=== PATIENT | male | born 1945 | race Caucasian/White ===

== ENCOUNTER 2021-02-25 15:30 | Inpatient (IN) ==
[2021-02-25] MEDS ORDERED: Saliva Stimulant 44.3ml BOTTLE PO PRN (16:23)
[2021-02-25] MEDS ORDERED: Saline Nasal Spray 44 ML BOTTLE NS PRN (16:23)
[2021-02-25] MEDS ORDERED: Morphine Sulfate Oral CONC 10 MG/0.5 ML ORAL.SYG SL PRN (16:23)
[2021-02-25] MEDS: Budesonide/Formoterol 160/4.5 1 PUFF INH IH SCH (20:35)
[2021-02-25] MEDS: Topiramate 25 MG TABLET PO SCH (22:03)
[2021-02-25] MEDS: Furosemide 40 MG TABLET PO SCH (22:10)
[2021-02-26] MEDS ORDERED: Insulin LISPRO 300 UNITS/3 ML VIAL SUBQ SCH ×3 (08:00→18:00)
[2021-02-26] MEDS ORDERED: Dextrose Gel 15 GM/37.5 ML TUBE PO PRN ×2 (08:03)
[2021-02-26] MEDS ORDERED: D5% in Water 1,000 ML IVC PRN (08:03)
[2021-02-26] MEDS ORDERED: *HR* Dextrose 50 % in Water (Syg) 50 ML SYRINGE IVP PRN (08:03)
[2021-02-26] MEDS: Furosemide 40 MG TABLET PO SCH (08:28)
[2021-02-26] MEDS: Finasteride 5 MG TABLET PO SCH (08:28)
[2021-02-26] MEDS: Topiramate 25 MG TABLET PO SCH ×2 (08:28→21:02)
[2021-02-26] MEDS: Cyanocobalamin (B-12) 1,000 MCG TABLET PO SCH (08:28)
[2021-02-26] MEDS: Cholecalciferol (D-3) 1,000 UNIT (25MCG) TABLET PO SCH (08:29)
[2021-02-26] MEDS: atenoloL 50 MG TABLET PO SCH (08:29)
[2021-02-26] MEDS: dexAMETHasone 4 MG TABLET PO SCH (08:29)
[2021-02-26] MEDS: Insulin DETEMIR 100 UNIT/ML X5UNITS SUBQ SCH ×2 (08:36→21:07)
[2021-02-26] MEDS: TERBINAFINE HCL 250 MG PO SCH (08:39)
[2021-02-26] MEDS ORDERED: atenoloL 50 MG TABLET PO SCH (09:00)
[2021-02-26] MEDS ORDERED: Insulin DETEMIR 100 UNIT/ML X5UNITS SUBQ SCH (09:00)
[2021-02-26] MEDS: Budesonide/Formoterol 160/4.5 1 PUFF INH IH SCH ×2 (10:01→22:19)
[2021-02-26] MEDS: Ipratropium 1 PUFF INHALER IH PRN ×2 (10:03→22:21)
[2021-02-26] MEDS: Insulin LISPRO 300 UNITS/3 ML VIAL SUBQ SCH ×3 (11:46→21:07)
[2021-02-27] MEDS: *HR* Enoxaparin 40 MG/0.4 ML SYRINGE SQ SCH (06:07)
[2021-02-27 06:56] LABS: Basophils % 0.3 %; Eosinophils # 0.1 K/mcL (0.0-0.6); Eosinophils % 1.4 %; Hematocrit 45.5 % (37.5-50.1); Hemoglobin 14.7 g/dL (12.9-16.9); Immature Granulocytes % 2.2 % (0-4); Lymphocytes # 2.1 K/mcL (0.6-4.6); Lymphocytes % 27.2 %; Mean Corpuscular HGB Conc 32.3 g/dL (31.6-35.5); Mean Corpuscular Hemoglobin 30.4 pg (28.0-33.3); Mean Corpuscular Volume 94.2 fL (83.0-100.0); Mean Platelet Volume 9.8 fL (9.4-12.4); Monocytes # 0.6 K/mcL (0.0-1.3); Monocytes % 7.9 %; Neutrophils # 4.7 K/mcL (1.6-8.9); Platelet Count 319 K/mcL (140-400); Red Blood Count 4.83 M/mcL (4.19-5.50); Red Cell Distribution Width 14.5 % (11.5-14.5); White Blood Count 7.6 K/mcL (4.3-11.1)
[2021-02-27 07:41] LABS: BUN/Creatinine Ratio 28 (6-26); Blood Urea Nitrogen 30 mg/dL (8-23); Calcium 9.1 mg/dL (8.6-10.3); Carbon Dioxide 43 mEq/L (23-29); Chloride 94 mEq/L (98-107); Glucose 71 mg/dL (70-105); Osmolality,Calculated 303 (280-300); Potassium 3.4 mEq/L (3.5-5.1); Sodium 144 mEq/L (136-145); eGFR For African Americans > 60 (> 60); eGFR For Non-African Americans > 60 (> 60)
[2021-02-27] MEDS: Insulin LISPRO 300 UNITS/3 ML VIAL SUBQ SCH ×4 (09:15→20:17)
[2021-02-27] MEDS: Ipratropium 1 PUFF INHALER IH PRN ×2 (09:16→22:55)
[2021-02-27] MEDS: Budesonide/Formoterol 160/4.5 1 PUFF INH IH SCH ×2 (09:17→22:56)
[2021-02-27] MEDS: Cyanocobalamin (B-12) 1,000 MCG TABLET PO SCH (10:10)
[2021-02-27] MEDS: Furosemide 40 MG TABLET PO SCH (10:11)
[2021-02-27] MEDS: dexAMETHasone 4 MG TABLET PO SCH (10:11)
[2021-02-27] MEDS: Cholecalciferol (D-3) 1,000 UNIT (25MCG) TABLET PO SCH (10:11)
[2021-02-27] MEDS: Topiramate 25 MG TABLET PO SCH ×2 (10:11→20:16)
[2021-02-27] MEDS: Insulin DETEMIR 100 UNIT/ML X5UNITS SUBQ SCH ×2 (10:12→20:17)
[2021-02-27] MEDS: atenoloL 50 MG TABLET PO SCH (10:12)
[2021-02-27] MEDS: Finasteride 5 MG TABLET PO SCH (10:12)
[2021-02-27] MEDS: TERBINAFINE HCL 250 MG PO SCH (10:13)
[2021-02-28] MEDS: *HR* Enoxaparin 40 MG/0.4 ML SYRINGE SQ SCH (05:17)
[2021-02-28] MEDS: Insulin LISPRO 300 UNITS/3 ML VIAL SUBQ SCH ×4 (07:47→20:56)
[2021-02-28] MEDS: dexAMETHasone 4 MG TABLET PO SCH (09:17)
[2021-02-28] MEDS: Cyanocobalamin (B-12) 1,000 MCG TABLET PO SCH (09:18)
[2021-02-28] MEDS: Topiramate 25 MG TABLET PO SCH ×2 (09:18→20:56)
[2021-02-28] MEDS: Finasteride 5 MG TABLET PO SCH (09:19)
[2021-02-28] MEDS: Furosemide 40 MG TABLET PO SCH (09:19)
[2021-02-28] MEDS: Cholecalciferol (D-3) 1,000 UNIT (25MCG) TABLET PO SCH (09:19)
[2021-02-28] MEDS: Insulin DETEMIR 100 UNIT/ML X5UNITS SUBQ SCH ×2 (09:23→20:56)
[2021-02-28] MEDS: TERBINAFINE HCL 250 MG PO SCH (09:24)
[2021-02-28] MEDS: Ipratropium 1 PUFF INHALER IH PRN (09:46)
[2021-02-28] MEDS: Budesonide/Formoterol 160/4.5 1 PUFF INH IH SCH (09:48)
[2021-02-28] MEDS: atenoloL 50 MG TABLET PO SCH (16:44)
[2021-03-01] MEDS: *HR* Enoxaparin 40 MG/0.4 ML SYRINGE SQ SCH (06:19)
[2021-03-01] MEDS: Insulin LISPRO 300 UNITS/3 ML VIAL SUBQ SCH ×4 (07:44→20:49)
[2021-03-01] MEDS: Cyanocobalamin (B-12) 1,000 MCG TABLET PO SCH (08:54)
[2021-03-01] MEDS: Topiramate 25 MG TABLET PO SCH ×2 (08:54→20:48)
[2021-03-01] MEDS: Cholecalciferol (D-3) 1,000 UNIT (25MCG) TABLET PO SCH (08:54)
[2021-03-01] MEDS: dexAMETHasone 4 MG TABLET PO SCH (08:55)
[2021-03-01] MEDS: Finasteride 5 MG TABLET PO SCH (08:55)
[2021-03-01] MEDS: TERBINAFINE HCL 250 MG PO SCH (08:55)
[2021-03-01] MEDS: atenoloL 50 MG TABLET PO SCH (08:56)
[2021-03-01] MEDS ORDERED: Furosemide 40 MG TABLET PO ONE (09:00)
[2021-03-01] MEDS: Insulin DETEMIR 100 UNIT/ML X5UNITS SUBQ SCH ×2 (09:40→20:48)
[2021-03-02] MEDS: *HR* Enoxaparin 40 MG/0.4 ML SYRINGE SQ SCH (05:37)
[2021-03-02] MEDS: Insulin LISPRO 300 UNITS/3 ML VIAL SUBQ SCH ×4 (08:28→21:03)
[2021-03-02] MEDS: Finasteride 5 MG TABLET PO SCH (10:41)
[2021-03-02] MEDS: Cholecalciferol (D-3) 1,000 UNIT (25MCG) TABLET PO SCH (10:41)
[2021-03-02] MEDS: atenoloL 50 MG TABLET PO SCH (10:41)
[2021-03-02] MEDS: Furosemide 40 MG TABLET PO SCH (10:41)
[2021-03-02] MEDS: Topiramate 25 MG TABLET PO SCH ×2 (10:42→20:59)
[2021-03-02] MEDS: Cyanocobalamin (B-12) 1,000 MCG TABLET PO SCH (10:42)
[2021-03-02] MEDS: TERBINAFINE HCL 250 MG PO SCH (10:47)
[2021-03-02] MEDS: Insulin DETEMIR 100 UNIT/ML X5UNITS SUBQ SCH ×2 (10:47→20:59)
[2021-03-02] MEDS: dexAMETHasone 4 MG TABLET PO SCH (10:50)
[2021-03-02] MEDS: Ipratropium 1 PUFF INHALER IH PRN (21:15)
[2021-03-02] MEDS: Melatonin 3 MG TABLET PO PRN (23:00)
[2021-03-03] MEDS: *HR* Enoxaparin 40 MG/0.4 ML SYRINGE SQ SCH (05:59)
[2021-03-03 06:45] LABS: Hemoglobin 11.9 g/dL (12.9-16.9); Mean Corpuscular HGB Conc 32.2 g/dL (31.6-35.5); Mean Corpuscular Hemoglobin 30.4 pg (28.0-33.3); Mean Corpuscular Volume 94.6 fL (83.0-100.0); Mean Platelet Volume 9.8 fL (9.4-12.4); Platelet Count 222 K/mcL (140-400); Red Blood Count 3.91 M/mcL (4.19-5.50); Red Cell Distribution Width 14.7 % (11.5-14.5); White Blood Count 6.1 K/mcL (4.3-11.1)
[2021-03-03 07:37] LABS: BUN/Creatinine Ratio 18 (6-26); Blood Urea Nitrogen 19 mg/dL (8-23); Calcium 8.5 mg/dL (8.6-10.3); Carbon Dioxide 38 mEq/L (23-29); Chloride 100 mEq/L (98-107); Glucose 87 mg/dL (70-105); Osmolality,Calculated 300 (280-300); Potassium 3.2 mEq/L (3.5-5.1); Sodium 144 mEq/L (136-145); eGFR For African Americans > 60 (> 60); eGFR For Non-African Americans > 60 (> 60)
[2021-03-03] MEDS: Insulin LISPRO 300 UNITS/3 ML VIAL SUBQ SCH ×4 (09:02→20:53)
[2021-03-03] MEDS: Cyanocobalamin (B-12) 1,000 MCG TABLET PO SCH (09:20)
[2021-03-03] MEDS: Topiramate 25 MG TABLET PO SCH ×2 (09:20→20:54)
[2021-03-03] MEDS: Cholecalciferol (D-3) 1,000 UNIT (25MCG) TABLET PO SCH (09:20)
[2021-03-03] MEDS: Furosemide 40 MG TABLET PO SCH (09:20)
[2021-03-03] MEDS: dexAMETHasone 4 MG TABLET PO SCH (09:21)
[2021-03-03] MEDS: Finasteride 5 MG TABLET PO SCH (09:21)
[2021-03-03] MEDS: atenoloL 50 MG TABLET PO SCH (09:21)
[2021-03-03] MEDS: TERBINAFINE HCL 250 MG PO SCH (09:22)
[2021-03-03] MEDS: Insulin DETEMIR 100 UNIT/ML X5UNITS SUBQ SCH ×2 (09:23→20:53)
[2021-03-03] MEDS: Melatonin 3 MG TABLET PO PRN (20:56)
[2021-03-03] MEDS: Ipratropium 1 PUFF INHALER IH PRN (22:18)
[2021-03-04] MEDS: *HR* Enoxaparin 40 MG/0.4 ML SYRINGE SQ SCH (04:58)
[2021-03-04] MEDS: Insulin LISPRO 300 UNITS/3 ML VIAL SUBQ SCH ×4 (07:40→20:59)
[2021-03-04] MEDS: TERBINAFINE HCL 250 MG PO SCH (08:29)
[2021-03-04] MEDS: Furosemide 40 MG TABLET PO SCH (08:29)
[2021-03-04] MEDS: Cholecalciferol (D-3) 1,000 UNIT (25MCG) TABLET PO SCH (08:30)
[2021-03-04] MEDS: Topiramate 25 MG TABLET PO SCH ×2 (08:30→21:03)
[2021-03-04] MEDS: Cyanocobalamin (B-12) 1,000 MCG TABLET PO SCH (08:30)
[2021-03-04] MEDS: dexAMETHasone 4 MG TABLET PO SCH (08:31)
[2021-03-04] MEDS: Finasteride 5 MG TABLET PO SCH (08:32)
[2021-03-04] MEDS: atenoloL 50 MG TABLET PO SCH (08:32)
[2021-03-04] MEDS: Insulin DETEMIR 100 UNIT/ML X5UNITS SUBQ SCH ×2 (10:00→21:02)
[2021-03-04] MEDS: Ipratropium 1 PUFF INHALER IH PRN ×2 (10:17→21:19)
[2021-03-04] MEDS: Melatonin 3 MG TABLET PO PRN (21:03)
[2021-03-05] MEDS: *HR* Enoxaparin 40 MG/0.4 ML SYRINGE SQ SCH (05:12)
[2021-03-05] MEDS: Insulin LISPRO 300 UNITS/3 ML VIAL SUBQ SCH ×4 (07:34→21:50)
[2021-03-05] MEDS: Finasteride 5 MG TABLET PO SCH (08:44)
[2021-03-05] MEDS: Cyanocobalamin (B-12) 1,000 MCG TABLET PO SCH (08:44)
[2021-03-05] MEDS: dexAMETHasone 4 MG TABLET PO SCH (08:45)
[2021-03-05] MEDS: Furosemide 40 MG TABLET PO SCH (08:45)
[2021-03-05] MEDS: Cholecalciferol (D-3) 1,000 UNIT (25MCG) TABLET PO SCH (08:46)
[2021-03-05] MEDS: Topiramate 25 MG TABLET PO SCH ×2 (08:46→21:51)
[2021-03-05] MEDS: atenoloL 50 MG TABLET PO SCH (08:47)
[2021-03-05] MEDS: TERBINAFINE HCL 250 MG PO SCH (08:49)
[2021-03-05] MEDS: Insulin DETEMIR 100 UNIT/ML X5UNITS SUBQ SCH ×2 (08:52→21:51)
[2021-03-05] MEDS: Ipratropium 1 PUFF INHALER IH PRN ×2 (09:31→20:17)
[2021-03-05] MEDS: Melatonin 3 MG TABLET PO PRN (21:51)
[2021-03-06] MEDS: *HR* Enoxaparin 40 MG/0.4 ML SYRINGE SQ SCH (06:29)
[2021-03-06] MEDS: Insulin DETEMIR 100 UNIT/ML X5UNITS SUBQ SCH ×2 (08:41→21:50)
[2021-03-06 08:48] LABS: Basophils % 0.4 %; Eosinophils # 0.1 K/mcL (0.0-0.6); Hematocrit 39.5 % (37.5-50.1); Hemoglobin 12.7 g/dL (12.9-16.9); Immature Granulocytes % 2.6 % (0-4); Lymphocytes # 1.8 K/mcL (0.6-4.6); Lymphocytes % 25.5 %; Mean Corpuscular HGB Conc 32.2 g/dL (31.6-35.5); Mean Corpuscular Hemoglobin 30.6 pg (28.0-33.3); Mean Corpuscular Volume 95.2 fL (83.0-100.0); Mean Platelet Volume 10.2 fL (9.4-12.4); Monocytes # 0.6 K/mcL (0.0-1.3); Monocytes % 8.1 %; Neutrophils # 4.4 K/mcL (1.6-8.9); Platelet Count 221 K/mcL (140-400); Red Blood Count 4.15 M/mcL (4.19-5.50); Red Cell Distribution Width 14.9 % (11.5-14.5); Segmented Neutrophils % 62.4 %
[2021-03-06] MEDS: Cholecalciferol (D-3) 1,000 UNIT (25MCG) TABLET PO SCH (09:01)
[2021-03-06] MEDS: Finasteride 5 MG TABLET PO SCH (09:01)
[2021-03-06] MEDS: dexAMETHasone 4 MG TABLET PO SCH (09:01)
[2021-03-06] MEDS: atenoloL 50 MG TABLET PO SCH (09:01)
[2021-03-06] MEDS: Topiramate 25 MG TABLET PO SCH ×2 (09:02→21:50)
[2021-03-06] MEDS: Cyanocobalamin (B-12) 1,000 MCG TABLET PO SCH (09:02)
[2021-03-06] MEDS: Insulin LISPRO 300 UNITS/3 ML VIAL SUBQ SCH ×4 (09:02→21:56)
[2021-03-06] MEDS: Furosemide 40 MG TABLET PO SCH (09:02)
[2021-03-06] MEDS: TERBINAFINE HCL 250 MG PO SCH (09:03)
[2021-03-06 09:12] LABS: BUN/Creatinine Ratio 19 (6-26); Blood Urea Nitrogen 17 mg/dL (8-23); Carbon Dioxide 35 mEq/L (23-29); Chloride 102 mEq/L (98-107); Glucose 120 mg/dL (70-105); Osmolality,Calculated 303 (280-300); Potassium 3.5 mEq/L (3.5-5.1); Sodium 145 mEq/L (136-145); eGFR For African Americans > 60 (> 60); eGFR For Non-African Americans > 60 (> 60)
[2021-03-06] MEDS: Ipratropium 1 PUFF INHALER IH PRN ×2 (09:42→22:03)
[2021-03-07] MEDS: *HR* Enoxaparin 40 MG/0.4 ML SYRINGE SQ SCH (05:43)
[2021-03-07] MEDS: Insulin LISPRO 300 UNITS/3 ML VIAL SUBQ SCH ×4 (08:02→20:05)
[2021-03-07] MEDS: atenoloL 50 MG TABLET PO SCH ×2 (08:42→17:06)
[2021-03-07] MEDS: Topiramate 25 MG TABLET PO SCH ×2 (08:42→20:04)
[2021-03-07] MEDS: Finasteride 5 MG TABLET PO SCH (08:43)
[2021-03-07] MEDS: Cyanocobalamin (B-12) 1,000 MCG TABLET PO SCH (08:43)
[2021-03-07] MEDS: Furosemide 40 MG TABLET PO SCH (08:43)
[2021-03-07] MEDS: Cholecalciferol (D-3) 1,000 UNIT (25MCG) TABLET PO SCH (08:43)
[2021-03-07] MEDS: dexAMETHasone 4 MG TABLET PO SCH (08:43)
[2021-03-07] MEDS: Insulin DETEMIR 100 UNIT/ML X5UNITS SUBQ SCH ×2 (08:45→20:05)
[2021-03-07] MEDS: TERBINAFINE HCL 250 MG PO SCH (08:45)
[2021-03-07] MEDS: Ipratropium 1 PUFF INHALER IH PRN ×2 (10:26→21:52)
[2021-03-08] MEDS: *HR* Enoxaparin 40 MG/0.4 ML SYRINGE SQ SCH (06:19)
[2021-03-08] MEDS: Finasteride 5 MG TABLET PO SCH (08:19)
[2021-03-08] MEDS: Insulin LISPRO 300 UNITS/3 ML VIAL SUBQ SCH ×4 (08:19→20:56)
[2021-03-08] MEDS: Cholecalciferol (D-3) 1,000 UNIT (25MCG) TABLET PO SCH (08:19)
[2021-03-08] MEDS: Furosemide 40 MG TABLET PO SCH (08:19)
[2021-03-08] MEDS: Cyanocobalamin (B-12) 1,000 MCG TABLET PO SCH (08:19)
[2021-03-08] MEDS: Topiramate 25 MG TABLET PO SCH ×2 (08:19→20:54)
[2021-03-08] MEDS: dexAMETHasone 4 MG TABLET PO SCH (08:20)
[2021-03-08] MEDS: TERBINAFINE HCL 250 MG PO SCH (08:20)
[2021-03-08] MEDS: atenoloL 50 MG TABLET PO SCH (08:20)
[2021-03-08] MEDS: Insulin DETEMIR 100 UNIT/ML X5UNITS SUBQ SCH ×2 (09:46→20:56)
[2021-03-08] MEDS: Ipratropium 1 PUFF INHALER IH PRN ×2 (09:59→21:35)
[2021-03-08 19:33] VITALS: TEMP 97.8
[2021-03-09] MEDS: *HR* Enoxaparin 40 MG/0.4 ML SYRINGE SQ SCH (05:37)
[2021-03-09 07:53] VITALS: BP 107/68; PULSE 68
[2021-03-09] MEDS: Insulin LISPRO 300 UNITS/3 ML VIAL SUBQ SCH ×2 (08:58→12:46)
[2021-03-09] MEDS: Insulin DETEMIR 100 UNIT/ML X5UNITS SUBQ SCH (08:58)
[2021-03-09] MEDS: dexAMETHasone 4 MG TABLET PO SCH (08:59)
[2021-03-09] MEDS: Cyanocobalamin (B-12) 1,000 MCG TABLET PO SCH (08:59)
[2021-03-09] MEDS: Finasteride 5 MG TABLET PO SCH (08:59)
[2021-03-09] MEDS: Topiramate 25 MG TABLET PO SCH (09:00)
[2021-03-09] MEDS: atenoloL 50 MG TABLET PO SCH (09:00)
[2021-03-09] MEDS: Cholecalciferol (D-3) 1,000 UNIT (25MCG) TABLET PO SCH (09:00)
[2021-03-09] MEDS: Furosemide 40 MG TABLET PO SCH (09:00)
[2021-03-09] MEDS: TERBINAFINE HCL 250 MG PO SCH (09:01)
[2021-03-09] MEDS: Ipratropium 1 PUFF INHALER IH PRN (09:49)
[2021-03-09] MEDS ORDERED: FLU Vac QV 21-22 (6Month+)/PF 0.5 ML SYRINGE IM ONE (11:35)
[2021-03-09 13:17] VITALS: RESP 16; O2SAT 96
== END 2021-03-09 17:40 | disposition home health service (06) | DRG 189 ==
LOC: INPPIK 19:05
PROVIDERS: ADMIT Family Medicine; ATTEND Family Medicine